=== PATIENT | female | born 1980 | race Caucasian/White ===

== ENCOUNTER 2017-10-10 06:41 | Emergency (ER) | payer BC ==
--- NOTE | 2017-10-10 07:33 | EDM.PDOC ---
ED HPI GENERAL MEDICAL PROBLEM - General Chief Complaint: General Stated Complaint: EAR IS HURTING CANCER PATIENT Time Seen by Provider: 10/10/17 07:15 Source of Information: Reports: Patient History Limitations: Reports: No Limitations - History of Present Illness INITIAL COMMENTS - FREE TEXT/NARRATIVE: 37-year-old who received chemotherapy on Sunday for breast cancer, woke this morning with left-sided neck and ear pain. No fever or chills, no cold symptoms , it hurts slightly to swallow. She has not been swimming. No shortness of breath or cough. No drainage from the ear. Onset: Gradual (Developed overnight) Severity: Mild Worsens with: Reports: Movement Associated Symptoms: Denies: Fever/Chills, Loss of Appetite, Malaise, Nausea/ Vomiting, Shortness of Breath Left Ear Pain Score (Numeric/FACES): 6 - Related Data Allergies Allergy/AdvReac Type Severity Reaction Status Date / Time No Known Allergies Allergy Verified 10/10/17 07:06 Home Meds: Home Meds . 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: Oncologic (Cancer) History: Reports: Breast, Other (See Below) Other Oncologic History: Is on chemo - Infectious Disease History Infectious Disease History: Reports: Chicken Pox, Shingles - Past Surgical History GI Surgical History: Reports: Cholecystectomy Female Surgical History: Reports: Other (See Below) Other Female Surgeries/Procedures: r breast CA Social & Family History - Tobacco Use Smoking Status *Q: Current Every Day Smoker Years of Tobacco use: 15 Packs/Tins Daily: 0.5 Used Tobacco, but Quit: No Second Hand Smoke Exposure: Yes - Caffeine Use Caffeine Use: Reports: Soda - Alcohol Use Days Per Week of Alcohol Use: 0 - Recreational Drug Use Recreational Drug Use: No ED ROS GENERAL - Review of Systems Review Of Systems: See Below Constitutional: Denies: Fever, Chills HEENT: Reports: Ear Pain, Throat Pain Respiratory: Denies: Shortness of Breath, Cough Cardiovascular: Denies: Chest Pain GI/Abdominal: Denies: Abdominal Pain Musculoskeletal: Reports: Neck Pain Skin: Reports: No Symptoms. Denies: Rash ED EXAM, GENERAL - Physical Exam Exam: See Below Exam Limited By: No Limitations General Appearance: Alert, No Apparent Distress Ears: Normal TMs Ear Exam: Bilateral Ear: Auricle Normal, Canal Normal, TM normal Throat/Mouth: Normal Inspection Head: Atraumatic Neck: Other (Patient is tender to palpation along the sternocleidomastoid on the left side) Respiratory/Chest: No Respiratory Distress Course - Vital Signs Last Recorded V/S: Last Vital Signs Temp 96 F 10/10/17 07:14 Pulse 82 10/10/17 07:14 Resp 16 10/10/17 07:14 BP 99/67 10/10/17 07:14 Pulse Ox 100 10/10/17 07:14 - Re-Assessments/Exams Free Text/Narrative Re-Assessment/Exam: 10/10/17 07:31 This presents is more of a musculoskeletal pain or irritation than an acute infection. She was encouraged to use a heating pad to the neck, anti- inflammatories along with her oxycodone if necessary and stay active. She'll return if she develops a fever or other different symptoms, or recheck in 3-4 days if not improving satisfactorily. Departure - Departure Time of Disposition: 07:43 Disposition: Home, Self-Care 01 Condition: Good Clinical Impression: Sternocleidomastoid muscle tenderness - Discharge Information Instructions: Musculoskeletal Pain Referrals: PCP,None [Primary Care Provider] - Forms: ED Department Discharge Care Plan Goals: Warmth to the area along with ibuprofen and gentle range of motion should be beneficial. Recheck in 3-4 days if not improving satisfactorily or return sooner if worsening such as fever or increased pain.
== END 2017-10-10 07:43 | disposition home or self-care (01) ==
LOC: JP.ED 06:41
DX: M62.9 Disorder of muscle, unspecified (principal); F17.210 Nicotine dependence, cigarettes, uncomplicated
CPT/HCPCS: 99283

== ENCOUNTER 2018-05-11 23:21 | Emergency (ER) | payer MEDICAID, OTHER ==
--- NOTE | 2018-05-12 00:01 | EDM.PDOC ---
ED HPI GENERAL MEDICAL PROBLEM - General Chief Complaint: Lower Extremity Injury/Pain Stated Complaint: left foot pain Time Seen by Provider: 05/11/18 23:56 Source of Information: Reports: Patient, Family, RN Notes Reviewed History Limitations: Reports: No Limitations - History of Present Illness INITIAL COMMENTS - FREE TEXT/NARRATIVE: 37-year-old female presents emergency department day complaint of left foot pain , she is currently undergoing chemotherapy pain started this evening does have a history of some peripheral neuropathy in both feet however this feels different she denies any trauma left foot Pain Score (Numeric/FACES): 3 - Related Data Allergies Allergy/AdvReac Type Severity Reaction Status Date / Time No Known Allergies Allergy Verified 05/11/18 23:36 Home Meds: Home Meds Capecitabine [Xeloda] 500 mg PO BID 05/11/18 [History] Pyridoxine HCl [Vitamin B-6] 250 mg PO BID 05/11/18 [History] Past Medical History HEENT History: Reports: Impaired Vision Gastrointestinal History: Reports: Chronic Diarrhea 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: Immunologic History: Reports: Immunosuppression, Other (See Below) Other Immunologic History: Breast cancer, currently taking PO chemo Oncologic (Cancer) History: Reports: Breast, Other (See Below) Other Oncologic History: Is on chemo Dermatologic History: Reports: Other (See Below) 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 Mastectomy November 29 2017. Breast expanders in bilateral breast Oncologic Surgical History: Reports: Biopsy of Breast, Mastectomy Social & Family History - Tobacco Use Smoking Status *Q: Current Every Day Smoker Years of Tobacco use: 20 Packs/Tins Daily: 0.5 - Caffeine Use Caffeine Use: Reports: Soda - Recreational Drug Use Recreational Drug Use: No Review of Systems - Review of Systems Review Of Systems: See Below Musculoskeletal: Reports: Foot Pain Skin: Reports: No Symptoms Neurological: Reports: Numbness ED EXAM, GENERAL - Physical Exam Exam: See Below Free Text/Narrative:: Examination of the foot left side pedal pulse is +2 right on appreciate any erythema there is no edema there is no specific point tenderness Exam Limited By: No Limitations General Appearance: Alert, WD/WN, No Apparent Distress Course - Vital Signs Last Recorded V/S: Last Vital Signs Temp 97.0 F 05/11/18 23:51 Pulse 106 H 05/11/18 23:51 Resp 15 05/11/18 23:51 BP 120/70 05/11/18 23:51 Pulse Ox 100 05/11/18 23:51 - Orders/Labs/Meds Orders: Active Orders 24 hr Category Date Time Status Foot Comp Min 3V Lt [CR] Stat Exams 05/11/18 23:58 Taken Departure - Departure Time of Disposition: 00:31 Disposition: Home, Self-Care 01 Condition: Fair Clinical Impression: Right foot pain - Discharge Information Referrals: PCP,None [Primary Care Provider] - Forms: ED Department Discharge Additional Instructions: Use nonsteroidal anti-inflammatories or Tylenol as needed for pain control, Please followup with your primary care provider in 3-5 days if not better, please call return to the emergency department with worsening of symptoms. - My Orders Last 24 Hours: My Active Orders 05/11/18 23:58 Foot Comp Min 3V Lt [CR] Stat - Assessment/Plan Last 24 Hours: My Active Orders 05/11/18 23:58 Foot Comp Min 3V Lt [CR] Stat Plan: Assessment Acuity = acute Site and laterality = left foot pain Etiology = unclear etiology Manifestations = none Location of injury = Home Lab values = foot x-ray I did review films myself I cannot appreciate any acute process, the official read from radiology is pending Plan Recommend using nonsteroidal anti-inflammatories or Tylenol as needed for pain control follow-up primary care 3-5 days for reevaluation if no improvement This note was dictated using [employer] voice recognition software please call with any questions on syntax or grammar.
--- NOTE | 2018-05-13 09:13 | CR ---
Foot Comp Min 3V Lt CLINICAL HISTORY: Pain FINDINGS: There is no acute fracture or dislocation within the foot. No destructive changes are present. IMPRESSION: No acute bony process.
== END 2018-05-12 00:36 | disposition home or self-care (01) ==
LOC: JP.ED 23:21
DX: M79.672 Pain in left foot (principal); C50.919 Malignant neoplasm of unspecified site of unspecified female breast; F17.210 Nicotine dependence, cigarettes, uncomplicated; Z90.49 Acquired absence of other specified parts of digestive tract; Z79.899 Other long term (current) drug therapy
CPT/HCPCS: 73630-26-LT; 73630-LT; 99284

== ENCOUNTER 2019-01-27 13:25 | Emergency (ER) | payer BC ==
--- NOTE | 2019-01-27 13:56 | EDM.PDOC ---
ED HPI GENERAL MEDICAL PROBLEM - General Chief Complaint: Abdominal Pain Stated Complaint: LOWER ABD PAIN Time Seen by Provider: 01/27/19 13:54 Source of Information: Reports: Patient History Limitations: Reports: No Limitations - History of Present Illness INITIAL COMMENTS - FREE TEXT/NARRATIVE: pt is having rt lower abdomanal pain. Onset: Other (pt has been having pain for several days. Today is less than 2-3 days ago, ) Duration: Hour(s): Location: Reports: Abdomen Associated Symptoms: Reports: No Other Symptoms, Other (pt is having some nause. 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: Immunologic History: Reports: Immunosuppression, Other (See Below) Other Immunologic History: Breast cancer, currently taking PO chemo Oncologic (Cancer) History: Reports: Breast, Other (See Below) Other Oncologic History: Is on chemo Dermatologic History: Reports: Other (See Below) 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 Mastectomy November 29 2017. Breast expanders in bilateral breast Oncologic Surgical History: Reports: Biopsy of Breast, Mastectomy Social & Family History - Tobacco Use Smoking Status *Q: Current Every Day Smoker Years of Tobacco use: 20 Packs/Tins Daily: 0.5 - Caffeine Use Caffeine Use: Reports: Soda - Recreational Drug Use Recreational Drug Use: No ED ROS GENERAL - Review of Systems Review Of Systems: See Below Constitutional: Reports: No Symptoms, Other (pt is having nausea. ) HEENT: Reports: No Symptoms Respiratory: Reports: No Symptoms Cardiovascular: Reports: No Symptoms Endocrine: Reports: No Symptoms GI/Abdominal: Reports: No Symptoms, Other (pt is having nausea and she has had pain in the rt lower abdoman) : Reports: No Symptoms Musculoskeletal: Reports: No Symptoms Skin: Reports: No Symptoms Neurological: Reports: No Symptoms ED EXAM, GI/ABD - Physical Exam Exam: See Below Text/Narrative:: pt arrived because on e cat scan she had on Sunday there was a concern about a torsion of the ovary. She returned here today for a pelvic US The US was done which did not reveal a torsion. She did have some larger folicles. Exam Limited By: No Limitations General Appearance: Alert, Anxious, Moderate Distress Ears: Normal TMs Nose: Normal Inspection Throat/Mouth: Normal Inspection Head: Atraumatic Neck: Normal Inspection Respiratory/Chest: No Respiratory Distress Cardiovascular: Regular Rate, Rhythm GI/Abdominal Exam: Soft, Other (mild rt lower tenderness. ) (Female) Exam: Deferred Rectal (Female) Exam: Deferred Back Exam: Normal Inspection Extremities: Normal Inspection Neurological: Alert, Oriented, Normal Cognition Course - Vital Signs Last Recorded V/S: Last Vital Signs Temp 35.2 C 01/27/19 13:43 Pulse 77 01/27/19 13:43 Resp 16 01/27/19 13:43 BP 118/78 01/27/19 13:43 Pulse Ox 95 01/27/19 13:43 - Orders/Labs/Meds Orders: Active Orders 24 hr Category Date Time Status Pelvis Non OB Ltd [US] Stat Exams 01/27/19 13:49 Ordered - Re-Assessments/Exams Free Text/Narrative Re-Assessment/Exam: 01/27/19 14:33 Us did not reveal free fluid, there were 2 larger follicles. She did not have a torsion Departure - Departure Time of Disposition: 14:34 Disposition: Home, Self-Care 01 Condition: Fair Clinical Impression: Pelvic pain - Discharge Information Referrals: Ivanna Dumont MD [Primary Care Provider] - Forms: ED Department Discharge Care Plan Goals: rtc if it gets worse, tylenol and motrin for pain. - My Orders Last 24 Hours: My Active Orders 01/27/19 13:49 Pelvis Non OB Ltd [US] Stat - Assessment/Plan Last 24 Hours: My Active Orders 01/27/19 13:49 Pelvis Non OB Ltd [US] Stat
[2019-01-27] MEDS ORDERED: Ondansetron 4 MG Tab.DIS PO ONE (14:28)
--- NOTE | 2019-01-27 15:25 | US ---
Pelvis Non OB Ltd CLINICAL HISTORY: Right pelvic pain FINDINGS: Real-time transabdominal and transvaginal images were obtained through the pelvis. Uterus measures 7.8 x 4.1 x 5.9 cm there is a uniform echotexture. The endometrial stripe is 4 mm. Right ovary measures 2.5 x 3.4 x 3.0 cm. There is normal variant blood flow. There is a 1.8 x 1.7 x 1.6 and a 1.8 x 1.6 x 1.7 cm simple cyst. Left ovary measures 2.3 x 1.5 x 1.8 cm. There is normal blood flow. Free fluid collections are identified. IMPRESSION: Normal-appearing uterus Normal or barium blood flow bilaterally Small cyst right ovary No mass or abnormal fluid collections
== END 2019-01-27 15:07 | disposition home or self-care (01) ==
LOC: JP.ED 13:25
DX: R10.2 Pelvic and perineal pain (principal); F17.210 Nicotine dependence, cigarettes, uncomplicated; Z85.3 Personal history of malignant neoplasm of breast
CPT/HCPCS: 76857; 99284; A9270

== ENCOUNTER 2019-11-03 15:32 | Emergency (ER) | payer BC ==
--- NOTE | 2019-11-03 17:08 | EDM.PDOC ---
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 Patient is currently taking opioid medications for postsurgical pain. Laxative for her constipation but had no results. She is a dual exam on her cell phone felt the ball of stool just inside her rectum. Notes discomfort no nausea or vomiting. 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: Immunologic History: Reports: Immunosuppression, Other (See Below) Other Immunologic History: Breast cancer, chorodoma Oncologic (Cancer) History: Reports: Breast, Other (See Below) Other Oncologic History: chorodoma Dermatologic History: Reports: Other (See Below) 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 Mastectomy November 29 2017. Breast expanders in bilateral breast Neurological Surgical History: Reports: Other (See Below) Other Neurological Surgeries/Procedures: resection of the s3 sacrum d/t cancer Oncologic Surgical History: Reports: Biopsy of Breast, Mastectomy Social & Family History - Tobacco Use Smoking Status *Q: Former Smoker Used Tobacco, but Quit: Yes Month/Year Tobacco Last Used: 10/2019 - Caffeine Use Caffeine Use: Reports: Soda - Recreational Drug Use Recreational Drug Use: No ED ROS GENERAL - Review of Systems Review Of Systems: See Below Constitutional: Reports: No Symptoms GI/Abdominal: Reports: Abdominal Pain, Constipation : Reports: No Symptoms, Dysuria ED EXAM, GI/ABD - Physical Exam Exam: See Below Exam Limited By: No Limitations General Appearance: Alert, WD/WN, No Apparent Distress Respiratory/Chest: No Respiratory Distress, Lungs Clear, Normal Breath Sounds Cardiovascular: Normal Peripheral Pulses, Regular Rate, Rhythm Rectal (Female) Exam: Other (Impaction) Back Exam: Other (Surgical scar extending from the low back to the superior gluteal cleft.) Course - Vital Signs Text/Narrative:: Patient recently had surgery to remove part of her coccyx for a chordoma. She is on opiates for pain control. She has been constipated over the last few days and had difficulty with this in her rectum as well as lower abdominal discomfort. Her vital signs are stable and her exam was otherwise unremarkable. Digital rectal exam revealed a fecal impaction. She has a healing scar stands into the teal cleft but does not approach the rectum. Patient was digitally disimpacted and then she was given an enema. She had good results. She felt much better and was ready to go home. She will use Colace, MiraLAX and occasional Dulcolax. She will avoid constipating foods. She will follow-up with her primary care provider as needed. Last Recorded V/S: Last Vital Signs Temp 36.4 C 11/03/19 16:15 Pulse 83 11/03/19 16:15 Resp 16 11/03/19 16:15 BP 116/71 11/03/19 16:15 Pulse Ox 99 11/03/19 16:15 - Orders/Labs/Meds Meds: Medications Discontinued Medications Generic Name Dose Route Start Last Admin Trade Name Freq PRN Reason Stop Dose Admin Sodium Biphosphate/Sodium Phosphate 133 ml 11/03/19 18:09 11/03/19 18:20 Fleet Enema RECTAL 11/03/19 18:10 1 enema ONETIME ONE Administration Departure - Departure Time of Disposition: 18:49 Disposition: Home, Self-Care 01 Condition: Good Clinical Impression: Constipation, Constipation - Discharge Information Instructions: Constipation, Adult Referrals: Lucia Dominguez MD [Primary Care Provider] - Forms: ED Department Discharge Additional Instructions: Use MiraLAX 1 capful in 8 ounces of daily. Take Colace 100 mg daily use Dul colax 5 mg 1 to 3 tablets as needed for constipation. Drink plenty of fluids and get regular exercise. Avoid constipating foods such as potatoes, rice and bread. Follow-up with your doctor as needed. Sepsis Event Note (ED) - Evaluation Sepsis Screening Result: No Definite Risk - Focused Exam Vital Signs: Vital Signs Temp Pulse Resp BP Pulse Ox 11/03/19 16:15 36.4 C 83 16 116/71 99 11/03/19 15:44 36.4 C 83 16 116/71 99
[2019-11-03] MEDS ORDERED: Sodium Phosphate,Monobasic/Sodium Phosphate,Dibasic Enema 133 ML Bottle RECTAL ONE (18:09)
== END 2019-11-03 19:11 | disposition home or self-care (01) ==
LOC: JP.ED 15:32
DX: K59.00 Constipation, unspecified (principal); Z87.891 Personal history of nicotine dependence; Z90.49 Acquired absence of other specified parts of digestive tract
CPT/HCPCS: 99283; A9270

== ENCOUNTER 2020-09-11 18:46 | Emergency (ER) | payer BC | END 2020-09-11 20:23 | disposition left against medical advice (07) | LOC: JP.ED 18:46 | DX: H92.09 Otalgia, unspecified ear (principal); Z53.21 Procedure and treatment not carried out due to patient leaving prior to being seen by health care provider ==

== ENCOUNTER 2024-01-25 06:26 | Day surgery (SDC) | payer BC ==
[2024-01-25] MEDS ORDERED: Sodium Chloride 0.9% 1,000 ML IV SCH (07:00)
[2024-01-25] MEDS ORDERED: Midazolam 1 MG/ML 2 ML SDV ONE (07:28)
[2024-01-25] MEDS ORDERED: fentaNYL 50 MCG/ML SDV ONE (07:28)
[2024-01-25] MEDS ORDERED: Propofol 200 MG/20 ML SDV ONE ×2 (07:28→07:55)
[2024-01-25] MEDS ORDERED: Ondansetron 4 MG/2 ML SDV ONE (07:47)
== END 2024-01-25 09:20 | disposition home or self-care (01) ==
LOC: JP.SDS 06:26
PROVIDERS: ATTEND Surgery
DX: Z12.11 Encounter for screening for malignant neoplasm of colon (principal); D12.4 Benign neoplasm of descending colon; F41.9 Anxiety disorder, unspecified; F17.200 Nicotine dependence, unspecified, uncomplicated; Z80.0 Family history of malignant neoplasm of digestive organs
CPT/HCPCS: 45385; 88305; J2250; J2405; J2704; J3010; 00811-QZ

== ENCOUNTER 2024-11-30 08:10 | Emergency (ER) | payer BC | END 2024-11-30 12:17 | disposition home or self-care (01) | LOC: JP.ED 08:10 | DX: S63.501A Unspecified sprain of right wrist, initial encounter (principal); Z90.49 Acquired absence of other specified parts of digestive tract; Z90.710 Acquired absence of both cervix and uterus; Z79.51 Long term (current) use of inhaled steroids; Z79.899 Other long term (current) drug therapy; W01.0XXA Fall on same level from slipping, tripping and stumbling without subsequent striking against object, initial encounter | CPT/HCPCS: 73110-RT; 99283 ==